=== PATIENT | male | born 1990 | race Caucasian/White ===

== ENCOUNTER 2019-12-31 09:07 | Emergency (ER) | payer MEDICAID, SELFPAY ==
[2019-12-31 09:09] VITALS: BP 123/69; PULSE 95; RESP 17; TEMP 36.7; O2SAT 99; BMI 22.6
--- NOTE | 2019-12-31 09:26 | CT_ITS ---
STUDY: CT ABDOMEN AND PELVIS WITH CONTRAST REASON FOR EXAM: Male, 29 years old. RT SIDE ABD PAIN X 9 MONTHS RADIATION DOSAGE (If Supplied By Facility): CTDIvol = ( 8.72 ) mGy, DLP = ( 371.21 ) mGycm TECHNIQUE: Transaxial images were obtained from the dome of the diaphragm to the symphysis pubis with oral contrast. Oral and amp;amp; IV Gastrografin and amp;amp; 100mL Isovue-370 was administered. Sagittal and coronal images were reconstructed. Individualized dose optimization techniques were used for this CT. COMPARISON: Comparison is made with prior examination dated October 05, 2017. FINDINGS: Mild increased markings at the lung bases suggestive of a linear atelectasis. The visualized portions of the heart are within normal limits. Normal liver. Normal gallbladder and extrahepatic biliary system. Normal spleen. Normal pancreas. Normal bilateral adrenal glands. Normal right kidney. Normal left kidney. Normal visualized stomach. Normal small intestine. Normal colon. The appendix is visualized and appears normal. Small benign-appearing lymph nodes are seen in the mesenteric fat in the right lower quadrant is suggestive of a mesenteric adenitis. Normal abdominal aorta. Normal inferior vena cava. There is borderline retroperitoneal lymphadenopathy with enlarged nodes no greater than 10mm in the short axis diameter. Normal urinary bladder. There is a small umbilical hernia containing fat. Small benign-appearing bilateral inguinal lymph nodes. Normal osseous structures. CT/Abdomen/Pelvis WITH Contrast IMPRESSION: Findings suggestive of mesenteric adenitis. Mild degree of bilateral linear atelectasis. Electronically Signed: Abad Montiel, at 11:13 EDT , Service support ,
--- NOTE | 2019-12-31 09:30 | ED.DCSUM_ITS ---
History of Present Illness Chief Complaint: Abd Pain Informant: Patient Narrative: Patient presents the emergency department with right-sided abdominal pain intermittently for approximately 9 months. He went and saw physician at the [facility] but did not follow-up until the other day. He states he had blood work that came back normal. He has a CT scan scheduled for tomorrow but was advised that if his symptoms worsen he should come to the emergency department. He states today he feels more bloated and is having worsening pain. He notes different consistencies with his stool but not diarrhea. He states he does have some blood with the stool at times. He has been on omeprazole which is helped and he is tried to cut out certain foods which she states is also helped. He has never had a colonoscopy. No familial history of inflammatory bowel conditions. No prior abdominal surgeries. He states his symptoms are present whether or not he eats. He denies any weight loss. He notes nausea but no vomiting. No urinary symptoms. Past Medical History - Allergies and Home Meds Allergies/Adverse Reactions: Allergies No Known Allergies Allergy (Verified 12/31/19 09:08) Primary Care Physician: Care Physician,No Primary [Primary Care Provider] - Smoking Status: Current every day smoker Review of Systems General: Denies: Chills, Fever, Sweats Eyes: Denies: Visual changes - bilaterally, Diplopia ENT: Denies: Rhinorrhea, Sore throat Cardiovascular: Denies: Chest pain, Palpitations Respiratory: Denies: Dyspnea, Cough, Dyspnea on exertion Gastrointestinal: Reports: Abdominal pain, Nausea, Hematochezia. Denies: Vomiting, Diarrhea, Constipation, Melena Genitourinary: Denies: Dysuria, Hematuria, Frequency Musculoskeletal: Denies: Back pain, Extremity Pain Skin: Denies: Rash, Wounds Neurological: Denies: Headache, Weakness, Numbness Physical Exam Vital Signs/Narrative: Vital Signs Temp Pulse Resp BP Pulse Ox 12/31/19 09:09 98.1 F 95 17 123/69 H 99 Inital Vital Signs reviewed: Yes General: Well nourished, Well developed, No Acute Distress Head: Normocephalic, Atraumatic Eyes: Perrl, EOMI ENT: Moist mucous membranes, No rhinorrhea Neck: Supple, Nontender Cardiovascular: Regular rate, Regular rhythm, No murmurs Respiratory: No distress, CTA bilaterally, Chest nontender Abdomen: Soft, Nontender, Nondistended, Normal bowel sounds Back: Nontender, Normal Inspection Extremities: Nontender, No edema Skin: Normal color, No rash Neurological: Alert, Oriented x3, Cranial nerves II-XII grossly intact, Normal Strength, Normal Sensation Psychological: Normal affect, Normal Mood Diagnostic/Tx/Re-eval - Medical Decision Making Basic labs were normal. CT of the pelvis is consistent with mesenteric adenitis. He had this also in 2018. I think it is vital with the patient follow-up with his doctors who are helping him through this. As I believe he will need a colonoscopy and further evaluation. ED Disposition - Plan for ED Patient: Diagnosis: Mesenteric adenitis, Acute abdominal pain in right lower quadrant Instructions: ED Adenitis Mesenteric Prescriptions: Prednisone [Deltasone] 40 mg PO DAILY #10 tab Prescription Printed Additional Instructions: Please follow-up with your doctor as scheduled. As he had a CT scan of your abdomen pelvis today you may not require that scan tomorrow please check with your doctors office to see if it would be necessary.
[2019-12-31 09:45] LABS: Absolute Lymphocyte Count 2.34 X10^3/uL (0.83-4.51); Absolute Neutrophil Count 7.1 X10^3/uL (2.0-7.7); Basophil# 0.07 X10^3/uL; Basophil% 0.7 % (0-1); Eosinophil# 0.19 X10^3/uL; Eosinophils% 1.8 % (0-5); Hematocrit 45.2 % (40-54); Hemoglobin 15.5 g/dL (13.0-16.5); Lymphocyte # 2.34 X10^3/ul (4.0); Lymphocyte % 22.2 % (19-41); Mean Corp Hgb Conc 34.3 g/dL (32-36); Mean Corpuscular Hgb 31.7 pg (27.0-32.0); Mean Corpuscular Volume 92.4 fL (80-94); Mean Platelet Vol. 9.7 fl (6.2-12.0); Monocyte# 0.77 X10^3/uL; Monocyte% 7.3 % (0-10); NRBC Flagged by Analyzer 0 % (0-5); Neutrophil # 7.12 X10^3/uL (2.7-7.7); Neutrophil % 67.7 % (47-70); Platelet Count 279 K/mm3 (150-450); RBC Distribution Width CV 12.3 % (11.6-14.6); RBC Distribution Width SD 41.8 fl (35.1-43.9); Red Blood Count 4.89 M/mm3 (4.6-6.2); White Blood Count 10.5 K/mm3 (4.4-11.0)
[2019-12-31 10:17] LABS: ALB/GLOB Ratio 1.1 RATIO (0.9-2.4); AST(SGOT) 23 U/L (15-37); Alanine Aminotransfer ALT/SGPT 34 U/L (16-61); Albumin, Serum 4.1 g/dL (3.2-5.0); Alkaline Phosphatase 123 U/L (45-117); Anion Gap 4 (5-15); BUN 14 mg/dL (7-18); Calcium,Total 9.3 mg/dL (8.5-10.1); Chloride 109 mmol/L (98-107); EST Glomerular Filtration Rate 92 mL/min (>60); Est Glom Filt Rate - Afr Amer 112 mL/min (>60); Estimated Creatinine Clearance 108.39 ml/min; Globulin 3.8 g/dL (2.2-4.2); Glucose 101 mg/dL (74-106); Lipase 132 U/L (73-393); Potassium 3.8 mmol/L (3.5-5.1); Protein, Total 7.9 g/dL (6.4-8.2); Sodium Level 141 mmol/L (136-145)
[2019-12-31 10:41] LABS: Bacteria 0 SEEN /hpf (None Seen); Red Blood Cells-Urine 0 SEEN /hpf (0-5); Squamous Epithelial Cells - UA 0 SEEN /hpf (0-5); White Blood Cells 0 SEEN /hpf (0-5)
[2019-12-31 10:42] LABS: Color, Urine Yellow (Yellow); Glucose, Dipstick Normal (Normal); Ketone-Dipstick Negative (Negative); Leukocyte Esterase-Dipstick Negative /ul (Negative); Nitrite-Dipstick Negative (Negative); Occult Blood-Urine Negative /ul (Negative); Protein-Dipstick Negative (Negative); Urine Bilirubin Dipstick Negative (Negative); Urine Clarity Clear (Clear); Urine Urobilinogen Normal (Normal)
[2019-12-31 10:57] VITALS: BP 110/74; PULSE 77; RESP 16; O2SAT 97
[2019-12-31 10:57] LABS: Mucous, Urine 1+ /hpf (<or=2+)
== END 2019-12-31 11:31 | disposition home or self-care (01) ==
PROVIDERS: Emergency Provider Emergency Medicine
DX: I88.0 Nonspecific mesenteric lymphadenitis (principal); R10.31 Right lower quadrant pain; F17.200 Nicotine dependence, unspecified, uncomplicated
CPT/HCPCS: 74177; 80053; 81001; 83690; 85025; 99284; J7030; Q9967; A4216

== ENCOUNTER 2020-06-04 12:28 | Emergency (ER) | payer MEDICAID, SELFPAY ==
[2020-06-04 12:29] VITALS: BP 142/90; PULSE 114; RESP 18; TEMP 37.2; O2SAT 100; BMI 22.6
--- NOTE | 2020-06-04 13:08 | ED.DCSUM_ITS ---
- ER Visit Summary Date of Service: 06/04/20 Chief Complaint: Abdominal pain History of Present Illness: The patient is a 30 M presenting with abdominal pain. Patient complains of right-sided abdominal pain which has been ongoing for the past 3 days. He states he has been diagnosed with colitis in the past and this feels similar. He denies nausea, vomiting. Denies diarrhea or constipation. Denies blood in his stool. Denies fever. Denies urinary complaints. He complains of diffuse crampy pain mostly on the right side. He has seen GI in the past. Denies other complaints. Physical Examination: Vitals are stable. Patient is afebrile. Alert no acute distress. HEENT exam is unremarkable. Neck is supple. Lungs are clear and equal bilaterally. Heart is regular rate and rhythm. Abdomen is soft diffuse tenderness with no rebound or guarding Extremities are unremarkable. Skin is warm and dry. Remainder of exam is unremarkable. Emergency Department Course and Treatment: CBC, chemistries unremarkable. Liver lipase normal. Urinalysis unremarkable. CT abdomen pelvis is pending at this time and will be checked out to the oncoming physician. Disposition: Pending Impression: Abdominal pain This note was generated with [employer] dictation software. It may contain incorrect words, spelling, and punctuation that were not noted in review of the chart prior to signing ED Disposition - Plan for ED Patient: Referrals: Care Physician,No Primary [NON-STAFF] -
[2020-06-04 13:20] LABS: Bacteria 0 SEEN /hpf (None Seen); Mucous, Urine 0 SEEN /hpf (<or=2+); Red Blood Cells-Urine 0 SEEN /hpf (0-5); Squamous Epithelial Cells - UA 0 SEEN /hpf (0-5); White Blood Cells 0 SEEN /hpf (0-5)
[2020-06-04 13:23] LABS: Color, Urine Yellow (Yellow); Glucose, Dipstick Normal (Normal); Ketone-Dipstick Negative (Negative); Leukocyte Esterase-Dipstick Negative /ul (Negative); Nitrite-Dipstick Negative (Negative); Occult Blood-Urine Negative /ul (Negative); Protein-Dipstick Negative (Negative); Specific Gravity, Urine 1.015 (1.002-1.030); Urine Bilirubin Dipstick Negative (Negative); Urine Clarity Clear (Clear); Urine Urobilinogen Normal (Normal); Urine pH 6.5 (5.0 - 8.0)
[2020-06-04 13:35] LABS: Hematocrit 43.4 % (40-54); Hemoglobin 14.7 g/dL (13.0-16.5); Mean Corp Hgb Conc 33.9 g/dL (32-36); Mean Corpuscular Hgb 31.7 pg (27.0-32.0); Mean Corpuscular Volume 93.7 fL (80-94); Mean Platelet Vol. 9.4 fl (6.2-12.0); Platelet Count 301 K/mm3 (150-450); RBC Distribution Width CV 12.1 % (11.6-14.6); Red Blood Count 4.63 M/mm3 (4.6-6.2); White Blood Count 9.4 K/mm3 (4.4-11.0)
[2020-06-04 13:41] VITALS: BP 142/90; PULSE 114; RESP 18; TEMP 37.2; O2SAT 100
[2020-06-04 14:01] LABS: ALB/GLOB Ratio 1.1 RATIO (0.9-2.4); AST(SGOT) 19 U/L (15-37); Alanine Aminotransfer ALT/SGPT 24 U/L (16-61); Albumin, Serum 4.1 g/dL (3.2-5.0); Alkaline Phosphatase 103 U/L (45-117); Anion Gap 3 (5-15); BUN 11 mg/dL (7-18); BUN/Creat Ratio 9.9 RATIO (10-20); Calcium,Total 9.2 mg/dL (8.5-10.1); Chloride 108 mmol/L (98-107); Creatinine, Serum 1.11 mg/dL (0.70-1.30); EST Glomerular Filtration Rate 82 mL/min (>60); Est Glom Filt Rate - Afr Amer 99 mL/min (>60); Estimated Creatinine Clearance 96.89 ml/min; Globulin 3.6 g/dL (2.2-4.2); Glucose 77 mg/dL (74-106); Lipase 52 U/L (73-393); Potassium 3.9 mmol/L (3.5-5.1); Protein, Total 7.7 g/dL (6.4-8.2); Sodium Level 141 mmol/L (136-145)
--- NOTE | 2020-06-04 14:55 | ED.DEP ---
ED Disposition - Plan for ED Patient: Instructions: ED Unknown Causes of Abdominal Pain Male Prescriptions: Dicyclomine HCl [Bentyl] 20 mg PO TIDAC #20 cap Prescription Printed Ondansetron [Zofran Odt] 4 mg PO Q8H PRN PRN #10 tab PRN Reason: Nausea Prescription Printed Referrals: Brien Valles MD [NON-STAFF] -
--- NOTE | 2020-06-04 15:15 | CT_ITS ---
STUDY: CT ABDOMEN AND PELVIS WITH CONTRAST REASON FOR EXAM: Male, 30 years old. ABDOMINAL PAIN X 3 DAYS RADIATION DOSAGE (If Supplied By Facility): CTDIvol = ( 8.88 ) mGy, DLP = ( 383.48 ) mGycm TECHNIQUE: Transaxial images were obtained from the dome of the diaphragm to the symphysis pubis with oral contrast. Oral and amp; IV Gastrografin and amp; 100mL Isovue-300 was administered. Sagittal and coronal images were reconstructed. Individualized dose optimization techniques were used for this CT. COMPARISON: Comparison is made with prior examination dated 12/31/2019. FINDINGS: Minimal degree of increased markings at the lung bases suggestive of bibasilar atelectasis. The visualized portions of the heart are within normal limits. Normal liver. Normal gallbladder and extrahepatic biliary system. Normal spleen. Normal pancreas. Normal bilateral adrenal glands. Normal right kidney. Normal left kidney. Normal visualized stomach. Normal small intestine. Normal colon. The appendix is visualized and appears normal. Normal abdominal aorta. Normal inferior vena cava. There is borderline retroperitoneal lymphadenopathy with enlarged nodes no greater than 10mm in the short axis diameter. Small lymph nodes are seen within the mesenteric fat in the right lower quadrant suggestive of mesenteric adenitis. Distended urinary bladder. Normal abdominal wall. Normal osseous structures. CT/Abdomen/Pelvis WITH Contrast IMPRESSION: Findings suggestive of mesenteric adenitis. Bibasilar atelectasis. There has been no change since prior examination. Electronically Signed: Abad Montiel, at 15:39 EDT , Service support ,
[2020-06-04 15:18] VITALS: BP 140/88; PULSE 80; RESP 18; O2SAT 99
[2020-06-04 16:01] VITALS: BP 133/89; PULSE 81; RESP 16; O2SAT 100
--- NOTE | 2020-06-04 16:01 | ED.RN ---
IV DC'ED, CATHETER INTACT, SMALL GAUZE DRESSING PLACED. DISCHARGE INSTRUCTIONS GIVEN TO AND REVIEWED WITH PATIENT, PATIENT DENIES QUESTIONS OR CONCERNS AND VOICES UNDERSTANDING OF DISCHARGE INSTRUCTIONS. PT AMBULATES OUT OF ROOM WITHOUT DIFFICULTY.
== END 2020-06-04 16:02 | disposition home or self-care (01) ==
PROVIDERS: Emergency Provider Emergency Medicine; PCP Family Medicine
DX: R10.84 Generalized abdominal pain (principal); Z72.0 Tobacco use
CPT/HCPCS: 74177; 80053; 81001; 83690; 85027; 99283; Q9967; A4216

== ENCOUNTER 2022-01-25 08:30 | Emergency (ER) | payer MEDICAID, SELFPAY ==
[2022-01-25 08:32] VITALS: BP 132/80; PULSE 90; RESP 17; TEMP 36.3; O2SAT 100
--- NOTE | 2022-01-25 08:54 | US_ITS ---
STUDY: ABDOMINAL ULTRASOUND - RIGHT UPPER QUADRANT REASON FOR VISIT: Male, 31 years old . Right upper quadrant pain. Nausea and vomiting. TECHNIQUE: Ultrasound evaluation of the right upper quadrant was performed with real-time and static perez-scale imaging. TECHNICAL QUALITY: Adequate. COMPARISON: Comparison is made with prior CT scan of the abdomen dated 06/04/2020. FINDINGS: Liver: The liver measures 17.2 cm. There is normal echogenicity of the liver. The bile ducts are within normal limits. There is hepatic color flow. The direction of portal flow is hepatopetal. There is no demonstrated mass lesion. Gallbladder: Normal distended gallbladder. The gallbladder wall measures 2 mm. There is a negative sonographic Finnegan''s sign. There is no pericholecystic fluid. There are no gallstones. Common Bile Duct (C.B.D.): The common bile duct measures 3 mm. Pancreas: Normal size of the head, body and tail of the pancreas. There is normal echogenicity of the pancreas. There is no demonstrated pancreatic mass or cyst. Right Kidney: Normal size of the right kidney. The right kidney measures 11.3 cm x 5.5 cm x 4.6 cm. Normal renal cortex. The right cortex measures 1.3 cm. There is no demonstrated renal mass or cyst. There is no right hydronephrosis. US/Gallbladder IMPRESSION: Normal right upper quadrant ultrasound examination. Electronically Signed: Abad Montiel MD at 10:10 EDT ,
[2022-01-25] MEDS: Ondansetron 4 MG/2 ML Vial IV (09:12)
[2022-01-25] MEDS: Morphine 4 MG/ML Syringe IV (09:12)
[2022-01-25] MEDS: 0.9% Normal Saline 1,000 ML 1000 ML IV (09:12)
[2022-01-25 09:25] LABS: Absolute Lymphocyte Count 2.41 X10^3/uL (0.83-4.51); Basophil# 0.06 X10^3/uL; Basophil% 0.5 % (0-1); Eosinophil# 0.16 X10^3/uL; Eosinophils% 1.3 % (0-5); Hematocrit 44.1 % (40-54); Hemoglobin 15.2 g/dL (13.0-16.5); Lymphocyte # 2.41 X10^3/ul (0.83-4.51); Lymphocyte % 19.1 % (19-41); Mean Corp Hgb Conc 34.5 g/dL (32-36); Mean Corpuscular Hgb 32.9 pg (27.0-32.0); Mean Corpuscular Volume 95.5 fL (80-94); Monocyte# 0.89 X10^3/uL; Monocyte% 7.1 % (0-10); NRBC Flagged by Analyzer 0 % (0-5); Neutrophil # 9.02 X10^3/uL (2.7-7.7); Neutrophil % 71.6 % (47-70); Platelet Count 297 K/mm3 (150-450); RBC Distribution Width SD 41.9 fl (35.1-43.9); Red Blood Count 4.62 M/mm3 (4.6-6.2); White Blood Count 12.6 K/mm3 (4.4-11.0)
[2022-01-25 09:41] LABS: ALB/GLOB Ratio 1.1 RATIO (0.9-2.4); AST(SGOT) 17 U/L (15-37); Alanine Aminotransfer ALT/SGPT 24 U/L (16-61); Alkaline Phosphatase 99 U/L (45-117); Anion Gap 7 (5-15); BUN 20 mg/dL (7-18); Calcium,Total 9.1 mg/dL (8.5-10.1); Chloride 109 mmol/L (98-107); EST Glomerular Filtration Rate 91 mL/min (>60); Est Glom Filt Rate - Afr Amer 110 mL/min (>60); Estimated Creatinine Clearance 94.22 ml/min; Globulin 3.6 g/dL (2.2-4.2); Glucose 104 mg/dL (74-106); Lipase 235 U/L (73-393); Potassium 3.5 mmol/L (3.5-5.1); Protein, Total 7.6 g/dL (6.4-8.2); Sodium Level 143 mmol/L (136-145)
--- NOTE | 2022-01-25 09:53 | ED.VIS.GI ---
HPI HPI - GI History of Present Illness Chief Complaint: Abd Pain Informant: patient Abdominal Pain/Flank Pain Onset: Today Context: Sudden Onset Timing: Continuous Quality: - (Pressure) Location: RUQ and Right Flank Worsened by: Movement Relieved by: Nothing Nausea/Vomiting/Emesis GI Symptom: Positive for Nausea and Vomiting Quality: Negative for Blood streaks, Coffee ground and Hematemesis Diarrhea/Melena/Hematochezia GI Symptom: Negative for Diarrhea, Melena and Hematochezia Associated Symptoms Associated Symptoms: Negative for Dysuria, Frequency and Hematuria Narrative Narrative: Patient presents with right upper abdominal pain that began today. Patient states it began rather suddenly. Patient states the pain feels like a pressure sensation. Patient states it is over the right upper quadrant right flank area. Patient admits to some nausea and vomiting. Patient denies any hematemesis or coffee-ground emesis. Patient denies any diarrhea, melena, or hematochezia. Patient denies any urinary complaints. Patient states nothing makes his pain better. Patient states it is worse whenever he stands up and moves. Patient denies any fevers or chills. PFSH PFSH Medical History Borderline high cholesterol Home Medications omeprazole 40 mg PO DAILY 12/31/19 [History Last Taken 12/30/19] prednisone 40 mg PO DAILY #10 tab 12/31/19 [Rx Last Taken Unknown] dicyclomine 20 mg PO TIDAC #20 cap 06/04/20 [Rx Last Taken Unknown] ondansetron 4 mg PO Q8H PRN PRN #10 tab 06/04/20 [Rx Last Taken Unknown] Allergy/AdvReac Type Severity Reaction Status Date / Time clindamycin AdvReac Vomiting Verified 06/04/20 12:32 Surgical History no surgical history no surgical history Social History Smoking Status: Current every day smoker tobacco type: cigarettes ROS ROS ED Constitutional Constitutional ED: Denies chills or fever(s) Eyes Eyes: Denies blurry vision or change in vision ENT ENT ED: Reports sore throat; Denies rhinorrhea Cardiovascular Cardiovascular: Denies chest pain or palpitations Respiratory/Chest Respiratory/Chest: Denies cough or dyspnea Gastrointestinal Gastrointestinal: Reports abdominal pain, nausea and vomiting; Denies diarrhea or melena Genitourinary Genitourinary ED: Denies dysuria or hematuria Musculoskeletal Musculoskeletal: Denies back pain or neck pain Integumentary Denies abscess or rash Neurologic Neurologic: Denies headache(s) or weakness Allergic/Immunologic Allergic/Immunologic ED: Denies mouth swelling or urticaria EXAM Physical Exam Const Vital Signs: 01/25/22 08:32 01/25/22 10:59 Temperature 97.3 F L Temperature Source Temporal Pulse Rate 90 Respiratory Rate 17 Blood Pressure 132/80 H 114/72 Blood Pressure Mean 97 86 Pulse Ox 100 97 Oxygen Delivery Method Room Air Room Air Positive well nourished and well developed General Appearance ED: well developed HEENT Reports moist mucous membranes Neck supple and no JVD Resp normal respiratory effort and clear to auscultation bilaterally Cardio regular rate, regular rhythm and no murmurs GI normal to inspection, nondistended, normoactive bowel sounds and non-distended Auscultation: normoactive bowel sounds Palpation: soft and tender RUQ; Negative for guarding or rebound tenderness present Extremity normal to inspection General Extremety ED: Negative for edema or tenderness General Extremity: Negative for edema Neuro oriented x3, CN's II-XII intact bilaterally and no sensory deficits noted Sensorium / Orientation: alert Motor Exam: strength 5/5 throughout Psych mental status grossly normal Skin no rashes or lesions noted MDM MDM MDM Narrative Medical decision making narrative: Patient was given IV fluids, morphine, and Zofran. CBC shows a mild leukocytosis of 12.6. Comprehensive metabolic profile was essentially within normal limits. Lipase was normal. Urinalysis does not show any evidence of urinary tract infection or hematuria. Ultrasound of the gallbladder was obtained. There is no evidence of cholelithiasis or cholecystitis. This was interpreted by the radiologist and reviewed by myself. Patient was advised of his findings. Patient was instructed to avoid fried foods, fatty foods, greasy foods. Patient states he has an appointment for a gallbladder function test coming up this week. Patient was instructed to follow-up with this test. Patient was instructed to follow-up with his primary care physician in 5 to 7 days. Patient understood and was agreeable with the plan. All questions were answered. Lab Data Attestation: I reviewed the patient's lab results. Labs: Laboratory Results - last 24 hr 01/25/22 01/25/2201/25/22 08:50 08:50 10:35 WBC 12.6 H RBC 4.62 Hgb 15.2 Hct 44.1 MCV 95.5 H MCH 32.9 H MCHC 34.5 RDW Std Deviation 41.9 RDW Coeff of Jazmyn 12.0 Plt Count 297 MPV 10.0 Immature Gran % (Auto) 0.400 Neut % (Auto) 71.6 H Lymph % (Auto) 19.1 [place] % (Auto) 7.1 Eos % (Auto) 1.3 Baso % (Auto) 0.5 Absolute Neuts (auto) 9.0 H Absolute Lymphs (auto) 2.41 Nucleated RBC % 0 Sodium 143 Potassium 3.5 Chloride 109 H Carbon Dioxide 27.0 Anion Gap 7 BUN 20 H Creatinine 1.00 Estim Creat Clear Calc 94.22 Est GFR (MDRD) Af Amer 110 Est GFR (MDRD) Non-Af 91 BUN/Creatinine Ratio 20.0 Glucose 104 Calcium 9.1 Total Bilirubin 0.50 AST 17 ALT 24 Alkaline Phosphatase 99 Total Protein 7.6 Albumin 4.0 Globulin 3.6 Albumin/Globulin Ratio 1.1 Lipase 235 Urine Color Yellow Urine Clarity Cloudy Urine pH 8.0 Ur Specific [place] 1.010 Urine Protein Negative Urine Glucose (UA) Normal Urine Ketones Negative Urine Occult Blood Negative Urine Nitrite Negative Urine Bilirubin Negative Urine Urobilinogen Normal Ur Leukocyte Esterase Negative Urine RBC 0 SEEN Urine WBC 0 SEEN Ur Squamous Epith Cells 0 SEEN Amorphous Sediment 2+ Urine Bacteria 2+ Urine Mucus 0 SEEN Radiography Diagnostic Testing: Clinical Impression(s) from Imaging Studies Gallbladder Ultrasound 01/25/22 08:54 IMPRESSION: Normal right upper quadrant ultrasound examination. Electronically Signed: Abad Montiel MD at 10:10 EDT , Discharge Plan Triage Chief Complaint: Abd Pain ED Provider: Norberto Ureña Dx/Rx/DC Orders Clinical Impression: Abdominal pain, acute, right upper quadrant Instructions: ED Abdominal Pain Unkn Cause Male... Prescriptions: No Action omeprazole 40 MG capsule,delayed release(DR/EC) 40 mg PO DAILY RF: 0 prednisone 20 MG tablet 40 mg PO DAILY Qty: 10 RF: 0 dicyclomine 10 MG capsule 20 mg PO TIDAC Qty: 20 RF: 0 ondansetron 4 MG tablet 4 mg PO Q8H PRN PRN (Reason: Nausea) Qty: 10 RF: 0 Primary Care Provider: Mandi Byers TRAFFIC OFFICER Referrals: Mandi Byers TRAFFIC OFFICER, TRAFFIC OFFICER-C [Primary Care Provider] - 5-7 Days Disposition Disposition: Home, Self Care
[2022-01-25 10:47] LABS: Mucous, Urine 0 SEEN /hpf (<or=2+); Red Blood Cells-Urine 0 SEEN /hpf (0-5); Squamous Epithelial Cells - UA 0 SEEN /hpf (0-5); White Blood Cells 0 SEEN /hpf (0-5)
[2022-01-25 10:49] LABS: Color, Urine Yellow (Yellow); Glucose, Dipstick Normal (Normal); Ketone-Dipstick Negative (Negative); Leukocyte Esterase-Dipstick Negative /ul (Negative); Nitrite-Dipstick Negative (Negative); Occult Blood-Urine Negative /ul (Negative); Protein-Dipstick Negative (Negative); Urine Bilirubin Dipstick Negative (Negative); Urine Clarity Cloudy (Clear); Urine Urobilinogen Normal (Normal)
[2022-01-25 10:57] LABS: Amorphous Sediment 2+; Bacteria 2+ /hpf (None Seen)
[2022-01-25 10:59] VITALS: BP 114/72; O2SAT 97
[2022-01-25 11:58] VITALS: BP 116/71; PULSE 60; RESP 16; O2SAT 98
== END 2022-01-25 11:58 | disposition home or self-care (01) ==
PROVIDERS: Emergency Provider Emergency Medicine; PCP Nurse Practitioner; Visit Provider Emergency Medicine
DX: R11.2 Nausea with vomiting, unspecified (principal); R10.11 Right upper quadrant pain; F17.210 Nicotine dependence, cigarettes, uncomplicated; Z79.899 Other long term (current) drug therapy
CPT/HCPCS: 76705; 80053; 81001; 83690; 85025; 96361; 96374; 96375; 99283; J7030; A4216; J2405

== ENCOUNTER 2022-02-24 17:44 | Emergency (ER) | payer MEDICAID, SELFPAY ==
[2022-02-24 17:45] VITALS: PULSE 97; RESP 16; TEMP 37; O2SAT 97; BMI 20.9
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
[2022-02-24] MEDS: Naproxen 500 MG Tablet PO (18:14)
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
--- NOTE | 2022-02-24 18:40 | ED.RN ---
no large walking boots in supply. Lauren hot dip tinning supervisor is checking hospital stock.
== END 2022-02-24 19:14 | disposition home or self-care (01) ==
PROVIDERS: Emergency Provider Student in an Organized Health Care Education/Training Program; PCP Nurse Practitioner; Visit Provider Student in an Organized Health Care Education/Training Program
DX: S82.65XA Nondisplaced fracture of lateral malleolus of left fibula, initial encounter for closed fracture (principal); V23.4XXA Motorcycle driver injured in collision with car, pick-up truck or van in traffic accident, initial encounter; E78.00 Pure hypercholesterolemia, unspecified; F17.210 Nicotine dependence, cigarettes, uncomplicated; Z79.52 Long term (current) use of systemic steroids; Z79.899 Other long term (current) drug therapy
CPT/HCPCS: 73610; 99285

== ENCOUNTER → 2022-03-12 | Outpatient (CLI) | payer MEDICAID, SELFPAY ==
--- NOTE | 2022-03-12 17:02 | CT_ITS ---
STUDY: CT LEFT ANKLE WITHOUT CONTRAST REASON FOR EXAM: Male, 31 years old. FRACTURE -- LEFT ANKLE RADIATION DOSAGE (If Supplied By Facility): CTDIvol = ( 15.35 ) mGy, DLP = ( 388.30 ) mGycm TECHNIQUE: Thin section transaxial imaging of the ankle was obtained, with sagittal and coronal reconstructed images. Individualized dose optimization techniques were used for this CT. COMPARISON: None. FINDINGS: There is acute comminuted oblique fracture of the distal fibula with approximately 5 mm at posterior displacement of the fragment. There is a tiny fragment adjacent to the distal tibia at the posterior malleolus likely fracture. This is best seen on the sagittal reformats series 601, #18 and 19. No other fracture demonstrated. There is mild asymmetry of the ankle mortise which appears to be widened anteriorly and superolaterally although this could be related to the positioning and suboptimal imaging planes. No dislocation. Diffuse soft tissue swelling most pronounced overlying the lateral malleolus. CT/Extremity Lower without Contra IMPRESSION: Acute comminuted fracture distal fibula. Tiny fracture of the distal tibia posterior malleolus. Questionable asymmetry of the ankle mortise correlate for instability or ligamentous injury. Electronically Signed: Jami Hendrix MD at 5:06 EDT ,
== END | disposition home or self-care (01) ==
LOC: CT 16:58
PROVIDERS: PCP Nurse Practitioner; Visit Provider Podiatrist
DX: S82.832A Other fracture of upper and lower end of left fibula, initial encounter for closed fracture (principal); S93.431A Sprain of tibiofibular ligament of right ankle, initial encounter
CPT/HCPCS: 73700

== ENCOUNTER → 2022-07-20 | Outpatient (CLI) | payer MEDICAID, SELFPAY ==
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
== END | disposition home or self-care (01) ==
LOC: MRI 09:50
PROVIDERS: PCP Nurse Practitioner; Referring Provider Podiatrist; Visit Provider Podiatrist
DX: S82.832D Other fracture of upper and lower end of left fibula, subsequent encounter for closed fracture with routine healing (principal)
CPT/HCPCS: 73721

== ENCOUNTER → 2022-10-14 | Outpatient (CLI) | payer MEDICAID, SELFPAY ==
--- NOTE | 2022-10-14 12:56 | CT_ITS ---
STUDY: CT LEFT ANKLE WITHOUT CONTRAST REASON FOR EXAM: Male, 32 years old. Nondisplaced fracture of lateral malleolus of left RADIATION DOSAGE (If Supplied By Facility): CTDIvol = ( 15.35 ) mGy, DLP = ( 436.00 ) mGycm TECHNIQUE: Thin section transaxial imaging of the ankle was obtained, with sagittal and coronal reconstructed images. Individualized dose optimization techniques were used for this CT. COMPARISON: Comparison is made with prior CT scan and ankle dated 03/12/2022 and prior MRI of the ankle dated 07/20/2022. FINDINGS: There is evidence of a stable appearance of a minimally displaced oblique fracture fragment of the undersurface and posterior aspect of the lateral malleolus. No bridging bony matrix is seen at the fracture site. Normal tibiotalar articulation and talar dome. There is evidence of a disuse osteoporosis of the visualized bones. The soft tissue structures are grossly normal. 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 Electronically Signed: Abad Montiel MD at 13:55 EST ,
== END | disposition home or self-care (01) ==
PROVIDERS: PCP Nurse Practitioner; Referring Provider Podiatrist; Visit Provider Podiatrist
DX: S82.65 Nondisplaced fracture of lateral malleolus of left fibula (principal); X58.XXXD Exposure to other specified factors, subsequent encounter
CPT/HCPCS: 73700

== ENCOUNTER 2022-12-17 10:30 | Outpatient (RCR) | payer MEDICAID, SELFPAY ==
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
--- NOTE | 2022-10-13 11:01 | HP.PTREVAL_ITS ---
Dr. Avi Jeffers, DPM, It has been my pleasure to treat WILLIAM TRAN over the last 9 visits for fracture of lower end of fibula. Please see the progress note below for an update on the physical therapy plan of care! Subjective: Pt. reports seeing physician again who was pleased with progress, but is going to get a CT scan tomorrow. He arrives today without use of crutches. He has been trying to do more without his crutches. 2/10 pain at lateral ankle. Pt. reports attempting to RTW at [facility] next month. Objective/Function: ROM: L: ankle DF 6deg active 8deg passive, normal EVR/INV. MMT: 5/5 throughout L ankle. gait: Pt. is able to ambulate without AD. He does have increased toeing out on L side. Pt. does have pain during end of stance phase on L side, most likely due to his DF stiffness. He ends of rotating his L hip posterior to accommodate for his stiffness. STAIRS: ascending good tolerance slight functional weakness eith pushing off with LUE. Descendign, early heel off on L side during end of loading phase. Mild increase in symptoms. SLS on L side 15sec, R side 30sec. Plan Plan: Cont. to work DF ROM in order to aid in walking mechanics and descending stairs. stair negotiation, SL stance. Pt. plans on going to progress back to work. He has been off for 6+ months and needs to work on some work hardening like exercises. Balance/Gait/Functional tests - Balance/Special Test Scores Lower Extremity Functional Score: 30 Goals Goal 1:: LTG: Pt. to be I with HEP. Goal Time Frame: 4-6 Weeks Goal Progress: Progressing Goal 2:: STG: Pt. to have to increased L ankle DF to 10deg allowing for increased ability to ambulate. Goal Time Frame: 2 Weeks Goal Progress: Progressing Goal 3:: STG: Pt. to be able to stand with equal wt. shifting without increase in symptoms without use of UEs on AD. Goal Time Frame: 2 Weeks Goal Progress: Goal Met Goal 4:: LTG: Pt. to be able to ambulate with normal gait pattern with good WBing through his LLE. Goal Time Frame: 2-4 Weeks Goal Progress: Progressing Goal 5:: LTG: Pt. to have 5/5 strength throughout LLE. Goal Time Frame: 4-6 Weeks Goal Progress: Progressing Goal 6:: LTG: Pt. to be able to stand 3-4 hours in order to complete work related activities. Anticipated Interventions Patient/Client Instruction: Educate patient on: Condition, Plan of Care, Risk Factors, Benefits of Fitness Program For the Purpose of:: To improve health and function, To foster healthy habits, To improve decision making, To facilitate caregiver knowledge, To improve self management, To prevent re-injury, To improve ability to perform tasks related to life management Therapeutic Exercise to Include: Strength training, Power training, Flexibilty training, Gait and locomotor training, Active ROM For the Purpose of:: To decrease pain, To increase ROM, To improve nutrient delivery to tissue, To increase oxygenation perfusion, To improve muscle p erformance and motor function, To improve ability to perform ADL's, To improve gait and locomotor functions, To improve health of tissue, To decrease soft tissue restriction Please do not hesitate to contact me at [phone] by phone or if you have questions or concerns regarding this new plan of care! Sincerely, Inder Parker DPT
--- NOTE | 2022-11-10 13:15 | HP.PTREVAL ---
Dr. Avi Jeffers, DPM, It has been my pleasure to treat WILLIAM TRAN over the last 12 visits for fracture of L lower end of fibula. Please see the progress note below for an update on the physical therapy plan of care! Subjective: Pt. reports he is back to using his leg more, he does feel like it is getting better. He reports still pain with end ranges of motion. He reports minimal issues with walking, but does walk with an increased limp. Objective/Function: ROM: L ankle: DF 4deg, PF 37deg, INV 20deg, EVR 10deg. No pain with testing. Very tight with DF. Normal knee ROM noted. MMT: Pt. has full strength of L ankle without increase in symptoms. GAIT: Pt. ambulates without a device, but does have a limp during end of L stance phase, pre swing. Pt. reports no pain. This appears to be due to his limited L ankle DF reducing this rocker moment and thus having early heel off. STAIRS: Ascending he has minimal issues, but descending he has early heel off during L stance phase resulting in increased UE use to off load LLE. I talked with him about more aggressive stretching and more frequent stretching into ankle DF. Pt. consents. I would also like to work on mobilizations to assist with DF, but stretching has to be consistent. Pt. consents. Plan Plan: I am asking for more visits in order to work on further improving DF allowing for improved gait and stair mobility. Balance/Gait/Functional tests - Balance/Special Test Scores Lower Extremity Functional Score: 49 Goals Goal 1:: LTG: Pt. to be I with HEP. Goal Time Frame: 4-6 Weeks Goal Progress: Progressing Goal 2:: STG: Pt. to have to increased L ankle DF to 10deg allowing for increased ability to ambulate. Goal Time Frame: 2 Weeks Goal Progress: Progressing Goal 3:: STG: Pt. to be able to stand with equal wt. shifting without increase in symptoms without use of UEs on AD. Goal Time Frame: 2 Weeks Goal Progress: Goal Met Goal 4:: LTG: Pt. to be able to ambulate with normal gait pattern with good WBing through his LLE. Goal Time Frame: 2-4 Weeks Goal Progress: Progressing Goal 5:: LTG: Pt. to have 5/5 strength throughout LLE. Goal Time Frame: 4-6 Weeks Goal Progress: Goal Met Goal 6:: LTG: Pt. to be able to stand 3-4 hours in order to complete work related activities. Goal Progress: Progressing Anticipated Interventions Patient/Client Instruction: Educate patient on: Condition, Plan of Care, Risk Factors, Benefits of Fitness Program For the Purpose of:: To improve health and function, To foster healthy habits, To improve decision making, To facilitate caregiver knowledge, To improve self management, To prevent re-injury, To improve ability to perform tasks related to life management Therapeutic Exercise to Include: Strength training, Power training, Flexibilty training, Gait and locomotor training, Active ROM For the Purpose of:: To decrease pain, To increase ROM, To improve nutrient delivery to tissue, To increase oxygenation perfusion, To improve muscle performance and motor function, To improve ability to perform ADL's, To improve gait and locomotor functions, To improve health of tissue, To decrease soft tissue restriction Please do not hesitate to contact me at [phone] by phone or if you have questions or concerns regarding this new plan of care! Sincerely, Inder Parker DPT
--- NOTE | 2022-12-17 11:59 | HP.PTREVAL ---
Dr. Avi Jeffers, DPM, It has been my pleasure to treat WILLIAM TRAN over the last 18 visits for fracture of L lower end of fibula. Please see the progress note below for an update on the physical therapy plan of care! Subjective: Pt. reports that he feels that he is heading in the right direction. Pt. was able to work in his garage the other day with picking up some heavier objects, but was then pretty painful for about 1 1/2 days. He is doing better today. pt. to follow up with physician next week. Objective/Function: Pt. has improved DF to 8deg passively, he does appear to have more DF with lunge stretch. He does have difficulty with descending steps, painful during L stance phase and early heel off. gait: Much improve tolerance and pattern. She has early heel off on L side during end of stance phase, but overall doing much better. MMT: 5/5 throughout L ankle. He has some functional weakness with walking and stairs. He has more of some proprioception issues with SLS and with uneven surfaces. Pt. continues to have some pain with prolonged standing. He is to follow up with physician next week. Plan Plan: Pt. to schedule depending on what physician to determines next week. Balance/Gait/Functional tests - Balance/Special Test Scores Lower Extremity Functional Score: 49 Goals Goal 1:: LTG: Pt. to be I with HEP. Goal Time Frame: 4-6 Weeks Goal Progress: Progressing Goal 2:: STG: Pt. to have to increased L ankle DF to 10deg allowing for increased ability to ambulate. Goal Time Frame: 2 Weeks Goal Progress: Progressing Goal 3:: STG: Pt. to be able to stand with equal wt. shifting without increase in symptoms without use of UEs on AD. Goal Time Frame: 2 Weeks Goal Progress: Goal Met Goal 4:: LTG: Pt. to be able to ambulate with normal gait pattern with good WBing through his LLE. Goal Time Frame: 2-4 Weeks Goal Progress: Progressing Goal 5:: LTG: Pt. to have 5/5 strength throughout LLE. Goal Time Frame: 4-6 Weeks Goal Progress: Goal Met Goal 6:: LTG: Pt. to be able to stand 3-4 hours in order to complete work related activities. Goal Progress: Progressing Anticipated Interventions Patient/Client Instruction: Educate patient on: Condition, Plan of Care, Risk Factors, Benefits of Fitness Program For the Purpose of:: To improve health and function, To foster healthy habits, To improve decision making, To facilitate caregiver knowledge, To improve self management, To prevent re-injury, To improve ability to perform tasks related to life management Therapeutic Exercise to Include: Strength training, Power training, Flexibilty training, Gait and locomotor training, Active ROM For the Purpose of:: To decrease pain, To increase ROM, To improve nutrient delivery to tissue, To increase oxygenation perfusion, To improve muscle performance and motor function, To improve ability to perform ADL's, To improve gait and locomotor functions, To improve health of tissue, To decrease soft tissue restriction Please do not hesitate to contact me at [phone] by phone or if you have questions or concerns regarding this new plan of care! Sincerely, DARI ChaseT
== END 2022-12-17 19:00 | disposition home or self-care (01) ==
LOC: PT 10:30
PROVIDERS: PCP Nurse Practitioner; Referring Provider Podiatrist; Visit Provider Podiatrist
DX: S82.832D Other fracture of upper and lower end of left fibula, subsequent encounter for closed fracture with routine healing (principal)
CPT/HCPCS: 97110; 97140; 97161; 97164

== ENCOUNTER → 2023-05-05 | Outpatient (CLI) | payer MEDICAID, SELFPAY ==
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
== END | disposition home or self-care (01) ==
LOC: MRI 06:30
PROVIDERS: PCP Internal Medicine; Referring Provider Podiatrist; Visit Provider Podiatrist
DX: M25.572 Pain in left ankle and joints of left foot (principal); S93.402A Sprain of unspecified ligament of left ankle, initial encounter; M25.472 Effusion, left ankle
CPT/HCPCS: 73721

== ENCOUNTER 2023-08-01 11:29 | Day surgery (SDC) | payer MEDICAID, SELFPAY ==
[2023-08-01] VITALS (7 sets, daily range): BP systolic 116–169; BP diastolic 77–91; PULSE 79–103; RESP 12–20; TEMP 36.4–36.8; O2SAT 93–100; BMI 22.4
[2023-08-01] MEDS: Lactated Ringers 1,000 ML 15 ML IV (11:53)
--- NOTE | 2023-08-01 13:00 | BON_PTH ---
PATIENT: WILLIAM TRAN [place] [facility] [id number] AGE/SX: 33/M ROOM: RE08/01/[address]: Dr. Avi Jeffers DPM : 1990 BED: DIS: 08/01/2023 SPEC #: [id number] RECD: 08/02/23 08:29 STATUS: ANAHY MCCURDY #: [id number] HECTOR: 08/01/23 13:[address]: Avi Jeffers DEPT: SURGICAL PATHOLOGY RECD BY: Zeina Perdomo ENTERED: 08/02/23 08:29 SP TYPE: Bone OTHR DR: Dr. Enoch Luu MD Tissues: Ankle, NOS Procedures: Decalcification bone/plaque Surgery Specimen Level IV HEADER OPERATION: Left ankle arthroscopy with lateral ankle stabilization PRE-OP DIAGNOSIS: Left ankle pain status post left ankle fracture, instability TISSUE SUBMITTED: Fibular bone, left ankle MICROSCOPIC DIAGNOSIS Fibular bone of left ankle, excision: Bone and tissue with focal reactive change. Benign fibrofatty tissue. AM:atilio 08/10/2023 MICROSCOPIC DESCRIPTION Slides are reviewed. GROSS DESCRIPTION Received in fixative is one container labeled with the patient's name and designated fibular bone left ankle. The specimen consists of two irregular and indurated fragments of villegas, gritty tissue that in aggregate measure 1.5 x 1.5 x 0.2 cm. The specimen is totally submitted in one cassette after decalcification. / AM:atilio 08/02/2023 TC:5 CPT: 80689, 15511
[2023-08-01] MEDS: Cefazolin 2 GM in 0.9% Normal Saline (100mL Bag) 100 ML IV (13:23)
--- NOTE | 2023-08-01 13:30 | RAD_ITS ---
INDICATION: PAIN EXAMINATION/TECHNIQUE: X-RAY - LEFT XR Ankle 2 Views 10 VIEWS COMPARISON: FINDINGS: Intraoperative images demonstrate questionable cortical irregularity at the tip of the lateral malleolus . There is lateral soft tissue swelling and subcutaneous emphysema RAD/Ankle 2 Views IMPRESSION: Possible cortical irregularity at the tip of the lateral malleolus with adjacent soft tissue swelling and subcutaneous emphysema. Electronically Signed: Jeferson Baptiste DO at 17:19 EST ,
[2023-08-01] MEDS: Bacitracin 500 UNITS/GM PACKET (15:47)
[2023-08-01] MEDS: Bupivacaine 0.5% PF 10 ML VIAL (15:47)
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
--- NOTE | 2023-08-01 17:21 | SUR.PHASEI ---
PATIENT BECAME DIAPHORETIC AND HOT AND CLAMMY AND NAUSEA. ZOFRAN GIVEN. BP 130/76, PULSE IS 76 AND SPO2 IS 98% FEELING SOME BETTER BEFORE GOING TO PHASE 2.
== END 2023-08-01 18:35 | disposition home or self-care (01) ==
LOC: SDC 11:32 → AC 11:35
PROVIDERS: PCP Internal Medicine; Referring Provider Podiatrist; Visit Provider Podiatrist
PROC: (CPT 29999; principal; 2023-08-01 12:45)
DX: M25.872 Other specified joint disorders, left ankle and foot (principal); M25.372 Other instability, left ankle; M25.772 Osteophyte, left ankle; G89.29 Other chronic pain; E78.5 Hyperlipidemia, unspecified; K21.9 Gastro-esophageal reflux disease without esophagitis; Z87.891 Personal history of nicotine dependence; S82.832S Other fracture of upper and lower end of left fibula, sequela; V99.XXXS Unspecified transport accident, sequela
CPT/HCPCS: 29898; 27695; 27635; 27658 ×2; 01480; 64450; 73600; 76000; 88305; 88311; C1713; J7120; J2405

== ENCOUNTER 2023-10-21 10:00 | Outpatient (RCR) | payer MEDICAID, SELFPAY ==
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
--- NOTE | 2023-10-21 10:52 | HP.PTDCSUM ---
Discharge Summary D/C summary: It has been my pleasure to treat WILLIAM TRAN referred by Dr. Avi Jeffers DPM, with the diagnosis of Left ankle arthroscopy with lateral ankle stabilization 08/01/23 for a total of 10 visit(s). Discharge Date: 10/21/23 Please see the following information for a summary of their discharge status. Subjective Subjective: Pt still has some twinges when he steps wrong but is set to go back to work after a vacation. Feels ready to be discahrged. Pt. reports being 85% better overall. Pain Left Ankle: Pain Intensity (Out of 10): 2 Overall Improvement % Improvement: 85 Objective Objective/Function: Pt demo's good L ankle strength and ROM, some soreness in Achilles with gentle hopping. Instructed pt to slowly introduce plyometrics and jogging after he feels a full work day is going well. Some tightness in L achilles but pt consistent with calf stretch and HEP. Pt admits some hesitancy to fully use LLE, but more mental block than physical limitation. Pt. does have some limited DF, but not as much. STAIRS: Slight early heel off with descending, but much improved. Goals Goal 1:: Patient will report participation in home exercise program activities a minimum of 5 days per week, as adjunct to skilled physical therapy intervention in preparation for independent home management upon discharge. Goal Progress: Goal Met Goal 2:: Patient will ambulate >300 feet with a normalized gait pattern Goal Progress: Goal Met Goal 3:: Patient will SLS for 30 sec without LOB Goal Progress: Goal Met Goal 4:: Patient will demo 10 degrees of DF in the left ankle Goal Progress: Goal Met Goal 5:: Patient will report 80% improvement Goal Progress: Goal Met Plan Plan: Pt to d/c from PT this date, pt to continue HEP and return to work within next few weeks. D/C Information Discharge Comments: Pt has improved in his functional abilities and met his goals. Pt is able to get back to work and has been consistent with HEP. D/c at this time and pt will continue exercises at home with a slow introduction to more athletic-based act. d/c sentence: If there are questions or concerns regarding this patient's physical therapy, please feel free to call me at [phone]. Thank you for the referral of this patient. Sincerely, Inder L Sipos, DPT Balance/Gait/Functional tests Balance/Special Test Scores Lower Extremity Functional Score: 61 Improvement % Improvement: 85
== END 2023-10-21 19:00 | disposition home or self-care (01) ==
LOC: PT 10:00
PROVIDERS: PCP Internal Medicine; Referring Provider Podiatrist; Visit Provider Podiatrist
DX: Z98.890 Other specified postprocedural states (principal)
CPT/HCPCS: 97110; 97140; 97162

== ENCOUNTER 2025-02-26 07:47 | Emergency (ER) | payer MEDICAID, SELFPAY ==
[2025-02-26 07:48] VITALS: BP 135/78; PULSE 84; RESP 16; TEMP 36.3; O2SAT 100; BMI 23.5
--- NOTE | 2025-02-26 09:01 | EDS_ITS ---
HPI HPI - GI History of Present Illness Chief Complaint: Nausea/Vomiting/Diarrhea Narrative Narrative: 34-year-old male who denies significant past medical history presents with nausea, vomiting, diarrhea, and right lower quadrant abdominal pain that began yesterday evening around 6 PM, approximately 15 hours ago. He had eaten dinner at [employer] and thought maybe he started to have food poisoning. He has had 2-3 episodes of nausea and vomiting without bloody emesis. He has had at least 7-8 episodes of diarrhea throughout the night. He feels weak and dehydrated. He developed right lower quadrant abdominal pain as well. No fevers or chills. No prior abdominal surgeries. Denies exacerbating or alleviating factors. Denies marijuana use. He presents because of the nausea, vomiting, diarrhea, and right lower quadrant abdominal pain. He states its shifted somewhat to the left side as well. PFSH PFS Medical History Anxiety Arthritis High cholesterol Gastric reflux Heartburn Former smoker History of Holter monitoring History of stress test Borderline high cholesterol Home Medications ?Medication ?Instructions ?Recorded ?Last Taken ?Type aspirin 81 mg tablet,delayed 81 mg PO DAILY #30 tabs 1 10/01/22 Unknown Rx release oxycodone 5 mg capsule 5 mg PO Q6H PRN pain 7 days #28 08/01/23 Unknown Rx caps ondansetron 4 mg disintegrating 4 mg PO Q8H PRN PRN Na usea #15 tabs 02/26/25 Unknown Rx tablet Allergy/AdvReac Type Severity Reaction Status Date / Time clindamycin AdvReac Vomiting Verified 08/01/23 11:37 Social History Smoking Status: Former smoker ROS ROS ED ROS Narrative Review of systems positive for right lower quadrant abdominal pain and shifting towards the left to suprapubic area as well as nausea, vomiting 2-3 episodes, no hematemesis, positive diarrhea without blood in stool, at least 7-8 episodes within the last 24 hours. No dysuria or hematuria. No exacerbating or alleviating factors. States feels dehydrated. EXAM Physical Exam Const Vital Signs: 02/26/25 07:48 02/26/25 09:16 02/26/25 10:00 Temperature 97.3 F L 98.4 F 98.7 F Temperature Source Temporal Oral Oral Pulse Rate 84 65 80 Respiratory Rate 16 18 18 Blood Pressure 135/78 H 139/91 H 142/85 H Blood Pressure Mean 97 107 104 Pulse Ox 100 99 100 Oxygen Delivery Method Room Air Room Air MDM MDM MDM Narrative Medical decision making narrative: The differential diet gnosis includes but not limited to acute appendicitis versus ureterolithiasis versus colitis versus gastroenteritis. I have low suspicion clinically for ureterolithiasis or pyelonephritis as history and physical does not support this. Patient bolused normal saline and administered morphine and ondansetron. I do feel CT imaging is indicated given his right lower quadrant pain and mild tenderness over McBurney's point. I reviewed his laboratory work and he has normal white count 9.9 with hemoglobin 15.2, hematocrit 43.3, platelet count normal at 343. BUN of 14 and creatinine 1.02, normal sodium, normal potassium, normal chloride. AST and ALT are normal as well as alk phos. Lipase normal at 43 so I doubt pancreatitis. Urinalysis significant for 5 ketones but negative for infection. I do not feel antibiotics are indicated. I reviewed the radiology report of the CT of the abdomen pelvis which shows no acute process. He has diverticuli but no evidence of diverticulitis. Upon repeat examination, he states he is less nauseated. I offered him Bentyl for abdominal cramping but he declined. In prescription form he would like something for nausea. His abdomen remains soft. He is agreeable to discharge. He will start a clear liquid diet and advance as tolerated, follow-up with primary care, return instructions reviewed. Disposition is discharged home in stable condition. History & Record Review Discussion w/independent historian: Patient Additional record(s) reviewed:: Prior ED visit (Essentially noncontributory to current chief complaint.) Lab Data Attestation: I reviewed the patient's lab results. Labs: Laboratory Results - last 24 hr 02/26/25 02/26/25 08:10 09:15 WBC 9.9 RBC 4.79 Hgb 15.2 Hct 43.3 MCV 90.4 MCH 31.7 MCHC 35.1 RDW Std Deviation 40.2 RDW Coeff of Jazmyn 12.2 Plt Count 343 MPV 9.8 Immature Gran % (Auto) 0.400 Neut % (Auto) 79.9 H Lymph % (Auto) 10.0 L Cottle % (Auto) 8.5 Eos % (Auto) 0.8 Baso % (Auto) 0.4 Absolute Neuts (auto) 7.9 H Absolute Lymphs (auto) 0.99 Nucleated RBC % 0 Sodium 139 Potassium 3.5 Chloride 103 Carbon Dioxide 21.8 Anion Gap 14 BUN 14 Creatinine 1.02 Estim Creat Clear Calc 103.38 Est GFR (MDRD) Non-Af 98 BUN/Creatinine Ratio 14.1 Glucose 101 H Calcium 9.7 Total Bilirubin 0.61 AST 22 ALT 15 Alkaline Phosphatase 122 Total Protein 7.6 Albumin 4.7 Globulin 2.9 Albumin/Globulin Ratio 1.6 Lipase 43 Urine Color Yellow Urine Clarity Clear Urine pH 8.0 Ur Specific Reeds 1.010 Urine Protein 30 H Urine Glucose (UA) Normal Urine Ketones 5 H Urine Occult Blood Negative Urine Nitrite Negative Urine Bilirubin Negative Urine Urobilinogen Normal Ur Leukocyte Esterase 25 H Urine RBC 0 SEEN Urine WBC 0-5 SEEN Ur Squamous Epith Cells 0 SEEN Urine Bacteria 1+ Urine Mucus 1+ Radiography Diagnostic Testing: Clinical Impression(s) from Imaging Studies Abdomen/Pelvis CT 02/26/25 10:10 IMPRESSION: Mild degree of fatty infiltration of the liver. Subcentimeter cyst in the upper lateral aspect of the right kidney. Scattered sigmoid diverticula. Reading Location: [place] [id number] Discharge Plan Triage Chief Complaint: Nausea/Vomiting/Diarrhea ED Provider: Arturo Odom Dx/Rx/DC Orders Clinical Impression: Nausea, vomiting, and diarrhea, Right-sided abdominal pain of unknown cause Instructions: ED Gastroenteritis, Viral (Adult), ED Abdominal Pain Unkn Cause Male... Prescriptions: New ondansetron 4 mg tablet,disintegrating 4 mg PO Q8H PRN PRN (Reason: Nausea) Qty: 15 0RF No Action aspirin 81 mg tablet,delayed release (DR/EC) 81 mg PO DAILY Qty: 30 0RF oxycodone 5 mg capsule 5 mg PO Q6H PRN (Reason: pain) 7 Days Qty: 28 0RF Primary Care Provider: Enoch Luu Referrals: Enoch Luu MD [Primary Care Provider] - 3-5 Days if not improving Activity Restrictions/Additional Instructions: Return to the emergency department with fever, increased pain, new or worsening symptoms. Clear liquid diet and advance as tolerated. Zofran as directed for nausea and vomiting. Print Language: Wolof Disposition Disposition: Home, Self Care
[2025-02-26 09:11] LABS: Absolute Lymphocyte Count 0.99 X10^3/uL (0.83-4.51); Absolute Neutrophil Count 7.9 X10^3/uL (2.0-7.7); Basophil# 0.04 X10^3/uL; Basophil% 0.4 % (0-1); Eosinophil# 0.08 X10^3/uL; Eosinophils% 0.8 % (0-5); Hematocrit 43.3 % (40-54); Hemoglobin 15.2 g/dL (13.0-16.5); Lymphocyte # 0.99 X10^3/ul (0.83-4.51); Mean Corp Hgb Conc 35.1 g/dL (32-36); Mean Corpuscular Hgb 31.7 pg (27.0-32.0); Mean Corpuscular Volume 90.4 fL (80-94); Mean Platelet Vol. 9.8 fl (6.2-12.0); Monocyte# 0.84 X10^3/uL; Monocyte% 8.5 % (0-10); NRBC Flagged by Analyzer 0 % (0-5); Neutrophil # 7.93 X10^3/uL (2.7-7.7); Neutrophil % 79.9 % (47-70); Platelet Count 343 K/mm3 (150-450); RBC Distribution Width CV 12.2 % (11.6-14.6); RBC Distribution Width SD 40.2 fl (35.1-43.9); Red Blood Count 4.79 M/mm3 (4.6-6.2); White Blood Count 9.9 K/mm3 (4.4-11.0)
[2025-02-26] MEDS: 0.9% Normal Saline (1000mL) 1,000 ML 999 ML IV (09:12)
[2025-02-26] MEDS: Ondansetron 4 MG/2 ML Vial IV (09:12)
[2025-02-26 09:16] VITALS: BP 139/91; PULSE 65; RESP 18; TEMP 36.9; O2SAT 99
[2025-02-26 09:22] LABS: Red Blood Cells-Urine 0 SEEN /hpf (0-5); Squamous Epithelial Cells - UA 0 SEEN /hpf (0-5)
[2025-02-26 09:25] LABS: Color, Urine Yellow (Yellow); Glucose, Dipstick Normal (Normal); Ketone-Dipstick 5 mg/dl (Negative); Leukocyte Esterase-Dipstick 25 /ul (Negative); Nitrite-Dipstick Negative (Negative); Occult Blood-Urine Negative /ul (Negative); Protein-Dipstick 30 mg/dl (Negative); Urine Bilirubin Dipstick Negative (Negative); Urine Clarity Clear (Clear); Urine Urobilinogen Normal (Normal)
[2025-02-26 09:33] LABS: Bacteria 1+ /hpf (None Seen); Mucous, Urine 1+ /hpf (<or=2+)
[2025-02-26 09:34] LABS: White Blood Cells 0-5 SEEN /hpf (0-5)
[2025-02-26 09:39] LABS: ALB/GLOB Ratio 1.6 RATIO (0.9-2.4); AST(SGOT) 22 U/L (<=37); Alanine Aminotransfer ALT/SGPT 15 U/L (<=46); Albumin, Serum 4.7 g/dL (3.5-5.0); Alkaline Phosphatase 122 U/L (40-129); Anion Gap 14 (5-15); BUN 14 mg/dL (4-19); BUN/Creat Ratio 14.1 RATIO (10-20); Calcium,Total 9.7 mg/dL (7.6-11.0); Carbon Dioxide 21.8 mmol/L (21.0-32.0); Chloride 103 mmol/L (98-108); Creatinine, Serum 1.02 mg/dL (0.70-1.20); EST Glomerular Filtration Rate 98 (>60); Estimated Creatinine Clearance 103.38 ml/min (50-250); Globulin 2.9 g/dL (2.2-4.2); Glucose 101 mg/dL (70-99); Lipase 43 U/L (13-75); Potassium 3.5 mmol/L (3.3-5.1); Protein, Total 7.6 g/dL (5.9-8.4); Sodium Level 139 mmol/L (133-145); Total Bilirubin 0.61 mg/dL (0.00-1.30)
[2025-02-26 10:00] VITALS: BP 142/85; PULSE 80; RESP 18; TEMP 37.1; O2SAT 100
--- NOTE | 2025-02-26 10:10 | CT_ITS ---
PROCEDURE: ABDOMEN/PELVIS W IV CONT ONLY 02/26/2025 REASON FOR EXAM: RIGHT LOWER QUADRANT ABDOMINAL PAIN TECHNIQUE: ABDOMEN/PELVIS W IV CONT ONLY. Coronal and Sagittal reconstruction series were provided. ORAL CONTRAST TYPE: None. CONTRAST: [id number] VOLUME: 100 mL One or more dose reduction techniques were used (e.g., Automated exposure control, adjustment of the mA and/or kV according to patient size, use of iterative reconstruction technique. RADIATION DOSE SUMMARY: CTDlvol: 12 mGy DLP: 623.92 mGycm COMPARISON: Prior study dated June 04, 2020. FINDINGS: Lung bases: Unremarkable Liver: Mild fatty infiltration of the liver. Gallbladder: Unremarkable. Spleen: Normal size. Pancreas: Normal size without evidence of mass surrounding inflammation or ductal dilation. Adrenals: Unremarkable Kidneys: 9 mm cyst is seen in the upper lateral aspect of the right kidney. Bladder: Unremarkable Bowel: Colonic diverticulosis without diverticulitis. Appendix: Unremarkable Lymph nodes: Unremarkable. Vasculature: Mild diffuse atherosclerotic calcifications are noted. Peritoneum / Retroperitoneum: Unremarkable Bones: Unremarkable CT/Abdomen/Pelvis W IV Cont ONLY IMPRESSION: Mild degree of fatty infiltration of the liver. Subcentimeter cyst in the upper lateral aspect of the right kidney. Scattered sigmoid diverticula. Reading Location: [facility]
[2025-02-26 10:56] VITALS: BP 145/87; PULSE 72; RESP 18; TEMP 37.1; O2SAT 100
== END 2025-02-26 11:03 | disposition home or self-care (01) ==
PROVIDERS: Emergency Provider Emergency Medicine; PCP Internal Medicine; Visit Provider Emergency Medicine
DX: R11.2 Nausea with vomiting, unspecified (principal); R19.7 Diarrhea, unspecified; E78.00 Pure hypercholesterolemia, unspecified; Z87.891 Personal history of nicotine dependence; K21.9 Gastro-esophageal reflux disease without esophagitis; R10.31 Right lower quadrant pain
CPT/HCPCS: 74177; 80053; 81001; 83690; 85025; 96361; 96374; 99283; Q9967; A4216; J2405